=== PATIENT | female | born 1975 | race Caucasian/White ===

== ENCOUNTER 2018-02-26 17:02 | Emergency (ER) | payer OTHER ==
[~2018-02-26] VITALS: Ht 152.4 cm; Wt 63.5 kg
[2018-02-26 17:16] VITALS: BP_SYST 125
[2018-02-26] MEDS ORDERED: KETOROLAC TROMETHAMINE 60 MG/2 ML VIAL IM ONE (18:15)
[2018-02-26 18:56] VITALS: BP_SYST 122
== END 2018-02-26 18:56 | disposition home or self-care (01) ==
LOC: SED 17:02
DX: G56.03 Carpal tunnel syndrome, bilateral upper limbs (principal); R03.0 Elevated blood-pressure reading, without diagnosis of hypertension
CPT/HCPCS: 29125; 96372; 99283; J1885

== ENCOUNTER 2018-10-15 10:35 | Emergency (ER) | payer OTHER ==
[~2018-10-15] VITALS: Ht 152.4 cm; Wt 61.2 kg
[2018-10-15 10:39] VITALS: BP_SYST 167
[2018-10-15 11:13] VITALS: BP_SYST 145
== END 2018-10-15 11:13 | disposition home or self-care (01) ==
LOC: SED 10:35
DX: J02.0 Streptococcal pharyngitis (principal); R03.0 Elevated blood-pressure reading, without diagnosis of hypertension; Z88.5 Allergy status to narcotic agent
CPT/HCPCS: 36415; 86403; 99283

== ENCOUNTER 2019-03-12 11:57 | Emergency (ER) | payer OTHER ==
[~2019-03-12] VITALS: Ht 152.4 cm; Wt 63.5 kg
[2019-03-12 12:02] VITALS: BP_SYST 162
--- NOTE | 2019-03-12 12:06 | NUR ---
Patient to ER bed 7 to gown for evaluation. Side rails up. Report given to Tejal SELF.
--- NOTE | 2019-03-12 12:08 | NUR ---
Pt arrived to ED with complaints of left leg pain, pt stated that it started approx. 11pm the previous night. There is pain and redness to area.
--- NOTE | 2019-03-12 12:10 | NUR ---
ER at bedside examining patient.
[2019-03-12] MEDS ORDERED: DIPH-TET-PERTUS Vaccine 0.5 ML VIAL (ADACEL) I.M. ONE (12:15)
[2019-03-12 12:40] VITALS: BP_SYST 162
--- NOTE | 2019-03-12 12:40 | NUR ---
Amita champion in ED - 03/12/19 at 1241 by [email or web address] LORIE Jerry at bedside examining patient.
--- NOTE | 2019-03-12 12:40 | NUR ---
Patient given written and verbal discharge instructions and verbalizes understanding. ER MD discussed with patient the results and treatment provided. Patient in stable condition. ID arm band removed. Rx of Clindamycin given. Patient educated on pain management and to follow up with PMD. Pain Scale 0/10. Opportunity for questions provided and answered. Medication side effect fact sheet provided.
== END 2019-03-12 12:40 | disposition home or self-care (01) ==
LOC: SED 11:57
DX: S70.362A Insect bite (nonvenomous), left thigh, initial encounter (principal); L03.116 Cellulitis of left lower limb; I10 Essential (primary) hypertension; Z88.5 Allergy status to narcotic agent; W57.XXXA Bitten or stung by nonvenomous insect and other nonvenomous arthropods, initial encounter; Y93.89 Activity, other specified; Y92.89 Other specified places as the place of occurrence of the external cause; Y99.8 Other external cause status
CPT/HCPCS: 90715; 99283

== ENCOUNTER 2019-04-25 20:03 | Emergency (ER) | payer OTHER ==
[~2019-04-25] VITALS: Ht 157.5 cm; Wt 61.2 kg
[2019-04-25 20:09] VITALS: BP_SYST 160
--- NOTE | 2019-04-25 20:12 | NUR ---
TPatient triaged and placed in waiting room. VSS and patient appears in no acute distress at this time. Accompanied by friend, awaiting available bed, and MD notified of need for MSE.
--- NOTE | 2019-04-25 20:20 | NUR ---
Patient to ER bed 2 to gown for evaluation. Side rails up. Report given to Vick.
--- NOTE | 2019-04-25 20:30 | NUR ---
ER Dr. Young at bedside examining patient.
--- NOTE | 2019-04-25 20:35 | NUR ---
Pt C/O difuse abdominal pain radiation to the left lower back x 2 days. Pt states "it feels like kidney stones". Pt denies any N/V/D, fever, painful urination or any other symptoms at this time. Will continue to monitor.
[2019-04-25 20:41] LABS: BILIRUBIN,URINE NEGATIVE (NEGATIVE); BLOOD, URINE 3+ (NEGATIVE); CLARITY/URINE SL HAZY (CLEAR); COLOR,URINE YELLOW (YELLOW); GLUCOSE,URINE NEGATIVE (NEGATIVE); KETONES,URINE TRACE (NEGATIVE); LEUKOCYTE ESTERASE ,URINE NEGATIVE (NEGATIVE); NITRITE, URINE NEGATIVE (NEGATIVE); PH,URINE 5.5 (5.0-8.0); PROTEIN URINE 1+ (NEGATIVE); UROBILINOGEN,URINE 0.2 (0.2-1.0)
[2019-04-25 20:47] LABS: BACTERIA,URINE FEW /HPF (None Seen); MUCUS,URINE 1+ /LPF (None Seen); RBC,URINE 20-50 /HPF (0-3); WBC,URINE 0-3 /HPF (0-3)
[2019-04-25] MEDS ORDERED: NACL 0.9% 1,000 ML IV ONE (20:55)
[2019-04-25] MEDS ORDERED: cefTRIAXone 1 GM IVPB PREMIX 50 ML IV ONE (21:00)
[2019-04-25] MEDS ORDERED: KETOROLAC TROMETHAMINE 30 MG VIAL IVP ONE (21:00)
--- NOTE | 2019-04-25 21:00 | NUR ---
# 20 gauge angiocath placed to RT AC. Use of asceptic technique. Opsite placed over site. Blood return noted. Blood for lab drawn from site. Flushed with 10 cc of normal saline. No evidence of infiltration noted. Patient tolerated well.
[2019-04-25 21:25] LABS: BASOPHILS % (AUTO) 0.5 % (0.0-2.0); EOSINOPHILS # (AUTO) 0.1 K/uL (0.0-0.4); EOSINOPHILS % (AUTO) 1.9 % (0.0-4.0); HEMATOCRIT 30.3 % (36-48); HEMOGLOBIN 9.2 g/dL (12.0-16.0); LYMPHOCYTES # (AUTO) 0.8 K/uL (1.0-5.5); LYMPHOCYTES % (AUTO) 10.6 % (20.5-51.5); MEAN CORPUSCULAR HEMOGLOBIN 20 pg (27-31); MEAN CORPUSCULAR HGB CONC 31 % (32-36); MEAN CORPUSCULAR VOLUME 66 fL (79.0-98.0); MONOCYTES # (AUTO) 0.6 K/uL (0.0-1.0); MONOCYTES % (AUTO) 8.2 % (1.7-9.3); NEUTROPHILS # (AUTO) 5.7 K/uL (1.8-7.7); NEUTROPHILS % (AUTO) 78.8 % (40.0-70.0); PLATELET COUNT (AUTO) 417 K/uL (130-430); RED BLOOD CELL COUNT(AUTO) 4.56 MIL/uL (4.2-6.2); RED CELL DISTRIBUTION WIDTH 20.8 % (9.0-15.0); WHITE BLOOD COUNT (AUTO) 7.2 K/uL (4.8-10.8)
[2019-04-25 21:39] LABS: CALCIUM 8.6 mg/dL (8.4-11.0); CREATININE 0.8 mg/dL (0.55-1.30)
[2019-04-25 21:44] LABS: ALBUMIN 2.8 g/dL (3.4-4.8); TOTAL BILIRUBIN 0.2 mg/dL (0.0-1.0)
--- NOTE | 2019-04-25 22:03 | NUR ---
Radiology at bedside
[2019-04-25] MEDS ORDERED: ENALAPRILAT DIHYDRATE 1.25 MG/ML VIAL IVP ONE (22:15)
--- NOTE | 2019-04-25 22:20 | NUR ---
Dr Young at bedside discussing diagnosis and discharge education
[2019-04-25 22:30] VITALS: BP_SYST 150
--- NOTE | 2019-04-25 22:30 | NUR ---
Patient given written and verbal discharge instructions and verbalizes understanding. ER MD discussed with patient the results and treatment provided. Patient in stable condition. ID arm band removed. IV catheter removed intact and dressing applied, no active bleeding. Rx of Cipro and Pyridium given. Patient educated on pain management and to follow up with PMD. Pain Scale 0. Opportunity for questions provided and answered. Medication side effect fact sheet provided.
== END 2019-04-25 22:30 | disposition home or self-care (01) ==
LOC: SED 20:03
DX: N30.90 Cystitis, unspecified without hematuria (principal); I10 Essential (primary) hypertension; F17.200 Nicotine dependence, unspecified, uncomplicated; Z71.6 Tobacco abuse counseling; Z87.442 Personal history of urinary calculi; Z88.5 Allergy status to narcotic agent
CPT/HCPCS: 36415; 80053; 81000; 81025; 83605; 85025; 87040; 96365; 96375; 99283; J0696; J1885

== ENCOUNTER 2019-04-26 15:17 | Emergency (ER) | payer OTHER ==
[~2019-04-26] VITALS: Ht 152.4 cm; Wt 63.5 kg
[2019-04-26 15:24] VITALS: BP_SYST 145
[2019-04-26] MEDS ORDERED: KETOROLAC TROMETHAMINE 30 MG VIAL IVP ONE (15:45)
[2019-04-26] MEDS ORDERED: ONDANSETRON HCL 4 MG/2 ML VIAL IVP ONE ×2 (15:45→17:15)
[2019-04-26 15:57] LABS: HEMATOCRIT 33.3 % (36-48); MONOCYTES # (AUTO) 0.5 K/uL (0.0-1.0); RED BLOOD CELL COUNT(AUTO) 5.06 MIL/uL (4.2-6.2)
[2019-04-26 16:02] LABS: BASOPHILS % (AUTO) 0.3 % (0.0-2.0); EOSINOPHILS # (AUTO) 0.1 K/uL (0.0-0.4); EOSINOPHILS % (AUTO) 0.7 % (0.0-4.0); LYMPHOCYTES # (AUTO) 1.2 K/uL (1.0-5.5); LYMPHOCYTES % (AUTO) 10.9 % (20.5-51.5); MEAN CORPUSCULAR HEMOGLOBIN 20 pg (27-31); MEAN CORPUSCULAR HGB CONC 30 % (32-36); MEAN CORPUSCULAR VOLUME 66 fL (79.0-98.0); MONOCYTES % (AUTO) 4.4 % (1.7-9.3); NEUTROPHILS # (AUTO) 9.5 K/uL (1.8-7.7); NEUTROPHILS % (AUTO) 83.7 % (40.0-70.0); PLATELET COUNT (AUTO) 441 K/uL (130-430); RED CELL DISTRIBUTION WIDTH 21.1 % (9.0-15.0)
[2019-04-26 16:03] LABS: WHITE BLOOD COUNT (AUTO) 11.3 K/uL (4.8-10.8)
[2019-04-26 16:09] LABS: CREATININE 0.8 mg/dL (0.55-1.30); POTASSIUM 3.6 mmol/L (3.5-5.1)
[2019-04-26 16:17] LABS: ALBUMIN 2.9 g/dL (3.4-4.8); TOTAL BILIRUBIN 0.1 mg/dL (0.0-1.0)
[2019-04-26 16:26] LABS: BILIRUBIN,URINE NEGATIVE (NEGATIVE); BLOOD, URINE 1+ (NEGATIVE); COLOR,URINE ORANGE (YELLOW); KETONES,URINE NEGATIVE (NEGATIVE); LEUKOCYTE ESTERASE ,URINE NEGATIVE (NEGATIVE); PH,URINE 5.5 (5.0-8.0); PROTEIN URINE 1+ (NEGATIVE)
[2019-04-26 16:28] LABS: HCG,QUAL RESULT NEGATIVE (NEGATIVE)
[2019-04-26 16:36] LABS: CLARITY/URINE HAZY (CLEAR); GLUCOSE,URINE NEGATIVE (NEGATIVE); NITRITE, URINE NEGATIVE (NEGATIVE)
[2019-04-26 16:37] LABS: BACTERIA,URINE FEW /HPF (None Seen); MUCUS,URINE None Seen /LPF (None Seen); WBC,URINE 0-3 /HPF (0-3)
[2019-04-26] MEDS ORDERED: MORPHINE 4 MG/ML INJ. SYRINGE IVP ONE (17:15)
[2019-04-26 18:57] VITALS: BP_SYST 145
== END 2019-04-26 18:57 | disposition home or self-care (01) ==
LOC: SED 15:17
DX: R07.89 Other chest pain (principal); R10.11 Right upper quadrant pain; R10.12 Left upper quadrant pain; I11.0 Hypertensive heart disease with heart failure; I50.9 Heart failure, unspecified
CPT/HCPCS: 36415; 71045; 74176; 76700; 80053; 81000; 81025; 83690; 83880; 84484; 84703; 85025; 96374; 96375; 96376; 99284; J1885; J2270; J2405

== ENCOUNTER 2020-02-22 13:46 | Emergency (ER) | payer OTHER ==
[~2020-02-22] VITALS: Ht 152.4 cm; Wt 63.5 kg
[2020-02-22 13:59] VITALS: BP_SYST 160
[2020-02-22] MEDS ORDERED: IBUPROFEN 600 MG TABLET PO ONE (15:00)
[2020-02-22 15:09] VITALS: BP_SYST 160
== END 2020-02-22 15:11 | disposition home or self-care (01) ==
LOC: SED 13:46
DX: H60.91 Unspecified otitis externa, right ear (principal); I11.0 Hypertensive heart disease with heart failure; I50.9 Heart failure, unspecified; Z88.5 Allergy status to narcotic agent; Z87.442 Personal history of urinary calculi
CPT/HCPCS: 99283; J7030

== ENCOUNTER 2020-02-25 19:37 | Emergency (ER) | payer OTHER ==
[~2020-02-25] VITALS: Ht 152.4 cm; Wt 63.5 kg
[2020-02-25 20:10] VITALS: BP_SYST 179
[2020-02-25 21:18] VITALS: BP_SYST 172
== END 2020-02-25 21:18 | disposition home or self-care (01) ==
LOC: SED 19:37
DX: H66.92 Otitis media, unspecified, left ear (principal); M26.601 Right temporomandibular joint disorder, unspecified; I11.0 Hypertensive heart disease with heart failure; I50.9 Heart failure, unspecified; Z88.5 Allergy status to narcotic agent; Z87.442 Personal history of urinary calculi
CPT/HCPCS: 99283

== ENCOUNTER 2020-03-07 17:18 | Emergency (ER) | payer OTHER ==
[~2020-03-07] VITALS: Ht 152.4 cm; Wt 59.0 kg
[2020-03-07 17:24] VITALS: BP_SYST 165
--- NOTE | 2020-03-07 17:30 | NUR ---
Patient to ER bed 6 to gown for evaluation. Side rails up.
--- NOTE | 2020-03-07 17:31 | NUR ---
pt arrives from home w/ c/o right ear x 3 weeks. pt has been seen three times for the same issue. States that she has had a reaction to Naprosyn. No other c/o at the moment
--- NOTE | 2020-03-07 17:35 | NUR ---
ER at bedside examining patient.
[2020-03-07] MEDS ORDERED: KETOROLAC TROMETHAMINE 60 MG/2 ML VIAL IM ONE (17:45)
--- NOTE | 2020-03-07 17:46 | NUR ---
medicated the pt w/ Toradol IM per MD order. Will reassess
[2020-03-07 17:55] VITALS: BP_SYST 165
--- NOTE | 2020-03-07 17:55 | NUR ---
Patient given written and verbal discharge instructions and verbalizes understanding. ER MD discussed with patient the results and treatment provided. Patient in stable condition. ID arm band removed. Rx of Ultram given. Patient educated on pain management and to follow up with PMD. Pain Scale 0/10. Opportunity for questions provided and answered. Medication side effect fact sheet provided.
== END 2020-03-07 17:55 | disposition home or self-care (01) ==
LOC: SED 17:18
DX: H92.01 Otalgia, right ear (principal); I11.0 Hypertensive heart disease with heart failure; I50.9 Heart failure, unspecified; Z87.442 Personal history of urinary calculi
CPT/HCPCS: 96372; 99283; J1885

== ENCOUNTER 2020-10-06 04:27 | Emergency (ER) | payer OTHER ==
[~2020-10-06] VITALS: Ht 152.4 cm; Wt 68.0 kg
[2020-10-06 05:11] VITALS: BP_SYST 185
--- NOTE | 2020-10-06 05:11 | NUR ---
Patient triaged and placed in waiting room. VSS and patient appears in no acute distress at this time. Accompanied by SELF, awaiting available bed, and MD notified of need for MSE.
--- NOTE | 2020-10-06 06:06 | NUR ---
Patient to [facility] [place] for evaluation. Side rails up.
--- NOTE | 2020-10-06 06:08 | NUR ---
PT A&O X4 FROM HOME C/O OF LEFT ELBOW PAIN, SWELLING, REDNESS, WARMTH TO TOUCH THAT STARTED LAST NIGHT. PT STATES SHE HAS HAD ELBOW PAIN FOR PAST MONTH BUT LAST NIGHT IT STARTED SWELLING AND GETTING MORE PAINFUL. PT DENIES BUG BITE, IV DRUG USE.
--- NOTE | 2020-10-06 06:28 | NUR ---
ER Dr. Fierro at bedside examining patient.
[2020-10-06] MEDS ORDERED: IBUPROFEN 800 MG TABLET PO ONE (06:45)
[2020-10-06] MEDS ORDERED: ACETAMINOPHEN 500 MG TABLET PO ONE (06:45)
[2020-10-06] MEDS ORDERED: ACETAMINOPHEN 500 MG TABLET ONE (07:09)
--- NOTE | 2020-10-06 07:13 | NUR ---
MEDICATED PER MD ORDERS. PT TOLERATED WELL.
--- NOTE | 2020-10-06 07:15 | NUR ---
Report from Malika SELF
--- NOTE | 2020-10-06 08:09 | NUR ---
Patient given written and verbal discharge instructions and verbalizes understanding. ER MD discussed with patient the results and treatment provided. Patient in stable condition. ID arm band removed. Rx of FLEXERIL & NAPROSYN given. Patient educated on pain management and to follow up with PMD. Pain Scale 6/10 . PO PAIN MEDICATION GIVEN IN ER. Opportunity for questions provided and answered. Medication side effect fact sheet provided.
[2020-10-06 08:11] VITALS: BP_SYST 141
== END 2020-10-06 08:11 | disposition home or self-care (01) ==
LOC: SED 04:27
DX: M25.522 Pain in left elbow (principal); I11.0 Hypertensive heart disease with heart failure; I50.9 Heart failure, unspecified; Z88.6 Allergy status to analgesic agent
CPT/HCPCS: 99283

== ENCOUNTER 2020-10-31 17:57 | Emergency (ER) | payer OTHER ==
[~2020-10-31] VITALS: Ht 152.4 cm; Wt 68.0 kg
[2020-10-31 18:00] VITALS: BP_SYST 160
--- NOTE | 2020-10-31 18:00 | NUR ---
BROUGHT IN TO TRIAGE TENT AND TRIAGED. AWAITING AVAILABLE ER BED.
--- NOTE | 2020-10-31 19:50 | NUR ---
Pt called x 3, no answer. Patient left without being seen. No further treatment done. ER MD aware
== END 2020-10-31 19:50 | disposition left against medical advice (07) ==
LOC: SED 17:57
DX: M79.662 Pain in left lower leg (principal); Z53.21 Procedure and treatment not carried out due to patient leaving prior to being seen by health care provider

== ENCOUNTER 2021-10-22 15:05 | Emergency (ER) | payer OTHER, SELFPAY ==
[~2021-10-22] VITALS: Ht 157.5 cm; Wt 72.6 kg
[~2021-10-22 15:05] MED LIST: ASA81 PO; LIP20 PO; LISI10TA29 PO; METO-542 PO
[2021-10-22 15:20] VITALS: BP_SYST 165
--- NOTE | 2021-10-22 15:20 | NUR ---
Patient to ER bed tent to gown for evaluation. Side rails up.
--- NOTE | 2021-10-22 15:25 | NUR ---
Pt brought by self, A&Ox4, pt presents to ER with L lower abdominal pain, N/V/D sx 1 week, skin pink and warm, cap refill <3, VSS
[2021-10-22] MEDS ORDERED: ONDANSETRON 4 MG ODT TAB PO ONE ×2 (15:30)
[2021-10-22] MEDS ORDERED: IBUPROFEN 800 MG TABLET PO ONE (15:30)
--- NOTE | 2021-10-22 15:30 | NUR ---
Dr Palacios evaluating patient at bedside
[2021-10-22 16:05] LABS: BASOPHILS % (AUTO) 0.4 % (0.0-2.0); EOSINOPHILS # (AUTO) 0.1 K/uL (0.0-0.4); EOSINOPHILS % (AUTO) 2.4 % (0.0-4.0); HEMATOCRIT 41.2 % (36-48); HEMOGLOBIN 13.6 g/dL (12.0-16.0); LYMPHOCYTES # (AUTO) 1.6 K/uL (1.0-5.5); MEAN CORPUSCULAR HEMOGLOBIN 29 pg (27-31); MEAN CORPUSCULAR HGB CONC 33 % (32-36); MEAN CORPUSCULAR VOLUME 89 fL (79.0-98.0); MONOCYTES # (AUTO) 0.5 K/uL (0.0-1.0); MONOCYTES % (AUTO) 9.1 % (1.7-9.3); NEUTROPHILS # (AUTO) 3.3 K/uL (1.8-7.7); NEUTROPHILS % (AUTO) 59.1 % (40.0-70.0); PLATELET COUNT (AUTO) 341 K/uL (130-430); RED BLOOD CELL COUNT(AUTO) 4.64 MIL/uL (4.2-6.2); RED CELL DISTRIBUTION WIDTH 14.3 % (9.0-15.0); WHITE BLOOD COUNT (AUTO) 5.6 K/uL (4.8-10.8)
[2021-10-22 16:08] LABS: CALCIUM 8.4 mg/dL (8.4-11.0); CREATININE 0.8 mg/dL (0.55-1.30); POTASSIUM 5.1 mmol/L (3.5-5.1)
[2021-10-22 16:14] LABS: BILIRUBIN,URINE NEGATIVE (NEGATIVE); BLOOD, URINE TRACE (NEGATIVE); CLARITY/URINE CLEAR (CLEAR); COLOR,URINE YELLOW (YELLOW); GLUCOSE,URINE NEGATIVE (NEGATIVE); KETONES,URINE NEGATIVE (NEGATIVE); NITRITE, URINE NEGATIVE (NEGATIVE); PH,URINE 5.5 (5.0-8.0); PROTEIN URINE NEGATIVE (NEGATIVE); UROBILINOGEN,URINE 0.2 (0.2-1.0)
[2021-10-22 16:15] LABS: ALBUMIN 3.7 g/dL (3.4-4.8); TOTAL BILIRUBIN 0.4 mg/dL (0.0-1.0)
[2021-10-22 16:16] LABS: BACTERIA,URINE FEW /HPF (None Seen); LEUKOCYTE ESTERASE ,URINE TRACE (NEGATIVE); MUCUS,URINE None Seen /LPF (None Seen); RBC,URINE 0-3 /HPF (0-3)
[2021-10-22 16:30] LABS: C-REACTIVE PROTEIN QUANT 0.4 mg/dL (0-0.5)
--- NOTE | 2021-10-22 16:50 | NUR ---
Patient moved into room 4. Awaiting diagnostic results and further dispo. Will continue to monitor.
--- NOTE | 2021-10-22 16:52 | NUR ---
Dr Palacios to bedside to update patient
[2021-10-22] MEDS ORDERED: IBUP-1969 PO (16:55)
[2021-10-22] MEDS ORDERED: ONDA-8 TL (16:55)
--- NOTE | 2021-10-22 17:00 | NUR ---
Patient given written and verbal discharge instructions and verbalizes understanding. ER MD discussed with patient the results and treatment provided. Patient in stable condition. ID arm band removed. Rx of Motrin and Ondansetron given. Patient educated on pain management and to follow up with PMD. Opportunity for questions provided and answered. Medication side effect fact sheet provided.
[2021-10-22 17:01] VITALS: BP_SYST 165
== END 2021-10-22 17:01 | disposition home or self-care (01) ==
LOC: SED 15:05
DX: R10.9 Unspecified abdominal pain (principal); I10 Essential (primary) hypertension; Z88.5 Allergy status to narcotic agent; Z79.899 Other long term (current) drug therapy; Z20.822 Contact with and (suspected) exposure to COVID-19
CPT/HCPCS: 36415; 74018; 80053; 81000; 82150; 83605; 83690; 84703; 85025; 86140; 87426; 99284; Q0162

== ENCOUNTER 2021-10-30 17:17 | Emergency (ER) | payer OTHER, SELFPAY ==
[~2021-10-30] VITALS: Ht 152.4 cm; Wt 72.6 kg
[~2021-10-30 17:17] MED LIST changes: +IBUP-1969 PO; +ONDA-8 TL
[2021-10-30 17:30] VITALS: BP_SYST 175
--- NOTE | 2021-10-30 17:30 | NUR ---
Pt. dropped off by father who is Covid +, pt. here with c/o chills and 10/10 pain to left side and left flank, denies N/V/D
--- NOTE | 2021-10-30 18:09 | NUR ---
LORIE Kathleen in tent examining patient.
--- NOTE | 2021-10-30 18:42 | NUR ---
pt. returned from CT
--- NOTE | 2021-10-30 18:50 | NUR ---
pt. resting on gurney, BP improved, urine and covid swab sent
--- NOTE | 2021-10-30 19:05 | NUR ---
Pt BIB family to ED with with history of kidney stones, presenting to the ED secondary to constant left flank pain radiating diffusely since this morning. Patient describes pain as sharp in nature with no alleviating or provoking factors. Patient was recently exposed to her father who is Covid positive
[2021-10-30 19:17] LABS: BASOPHILS % (AUTO) 0.4 % (0.0-2.0); EOSINOPHILS % (AUTO) 0.3 % (0.0-4.0); HEMATOCRIT 43.7 % (36-48); HEMOGLOBIN 14.9 g/dL (12.0-16.0); LYMPHOCYTES # (AUTO) 0.9 K/uL (1.0-5.5); MEAN CORPUSCULAR HEMOGLOBIN 30 pg (27-31); MEAN CORPUSCULAR HGB CONC 34 % (32-36); MEAN CORPUSCULAR VOLUME 87 fL (79.0-98.0); MONOCYTES # (AUTO) 0.6 K/uL (0.0-1.0); MONOCYTES % (AUTO) 5.4 % (1.7-9.3); NEUTROPHILS # (AUTO) 8.8 K/uL (1.8-7.7); NEUTROPHILS % (AUTO) 84.9 % (40.0-70.0); PLATELET COUNT (AUTO) 349 K/uL (130-430); RED CELL DISTRIBUTION WIDTH 13.8 % (9.0-15.0); WHITE BLOOD COUNT (AUTO) 10.3 K/uL (4.8-10.8)
[2021-10-30 19:18] LABS: BILIRUBIN,URINE NEGATIVE (NEGATIVE); BLOOD, URINE 2+ (NEGATIVE); COLOR,URINE YELLOW (YELLOW); GLUCOSE,URINE NEGATIVE (NEGATIVE); KETONES,URINE NEGATIVE (NEGATIVE); LEUKOCYTE ESTERASE ,URINE NEGATIVE (NEGATIVE); NITRITE, URINE POSITIVE (NEGATIVE); PROTEIN URINE 3+ (NEGATIVE); UROBILINOGEN,URINE 0.2 (0.2-1.0)
[2021-10-30 19:21] LABS: CALCIUM 9.2 mg/dL (8.4-11.0); CREATININE 1.1 mg/dL (0.55-1.30)
[2021-10-30 19:29] LABS: CLARITY/URINE HAZY (CLEAR)
[2021-10-30 19:37] LABS: ALBUMIN 3.6 g/dL (3.4-4.8); TOTAL BILIRUBIN 0.5 mg/dL (0.0-1.0)
[2021-10-30 19:56] LABS: BACTERIA,URINE MANY /HPF (None Seen); WBC,URINE 80-100 /HPF (0-3)
[2021-10-30] MEDS ORDERED: HYDROcodone/ACETAMIN 5-325 MG TAB (NORCO/ VICODIN) PO ONE (20:00)
--- NOTE | 2021-10-30 20:11 | NUR ---
VSS no s/s of acute distress
[2021-10-30] MEDS ORDERED: cefTRIAXone 1 GM in D5W 50 ML IV ONE (20:15)
[2021-10-30] MEDS ORDERED: cefTRIAXone 1 GM VIAL ONE (20:28)
[2021-10-30] MEDS ORDERED: NACL 0.9% 1,000 ML IV ONE (21:15)
--- NOTE | 2021-10-30 21:27 | NUR ---
Pain med + IVF therapy well tolerated
--- NOTE | 2021-10-30 22:26 | NUR ---
Pt repositioned to outside tent, well tolerated
[2021-10-30] MEDS ORDERED: CEPH-548 PO (23:08)
[2021-10-30] MEDS ORDERED: HYDR-3917 PO (23:08)
[2021-10-30 23:33] VITALS: BP_SYST 132
--- NOTE | 2021-10-30 23:34 | NUR ---
Patient given written and verbal discharge instructions and verbalizes understanding. ER MD discussed with patient the results and treatment provided. Patient in stable condition. ID arm band removed. Rx of keflex and norco given. Patient educated on pain management and to follow up with PMD. Pain Scale 0. Opportunity for questions provided and answered. Medication side effect fact sheet provided.
== END 2021-10-30 23:33 | disposition home or self-care (01) ==
LOC: SED 17:17
DX: N39.0 Urinary tract infection, site not specified (principal); R10.9 Unspecified abdominal pain; F12.90 Cannabis use, unspecified, uncomplicated; I10 Essential (primary) hypertension; Z88.5 Allergy status to narcotic agent; Z88.8 Allergy status to other drugs, medicaments and biological substances; Z79.82 Long term (current) use of aspirin; Z79.899 Other long term (current) drug therapy; Z20.822 Contact with and (suspected) exposure to COVID-19
CPT/HCPCS: 36415; 74176; 76376; 80053; 81000; 83605; 83690; 84702; 85025; 87086; 87426; 99284; J0696

== ENCOUNTER 2022-09-15 06:57 | Emergency (ER) | payer OTHER ==
[~2022-09-15] VITALS: Ht 152.4 cm; Wt 74.8 kg
[~2022-09-15 06:57] MED LIST changes: +CEPH-548 PO; +HYDR-3917 PO
[2022-09-15 07:05] VITALS: BP_SYST 142
--- NOTE | 2022-09-15 07:05 | NUR ---
BROUGHT BACK TO BED #8 AND TRIAGED. REPORT GIVEN TO JAYME
--- NOTE | 2022-09-15 07:20 | NUR ---
DR PEREZ AT BEDSIDE FOR EVALUATION
[2022-09-15] MEDS ORDERED: CHOL200075 PO (07:28)
[2022-09-15] MEDS ORDERED: IRON PO (07:28)
[2022-09-15 07:41] LABS: BILIRUBIN,URINE NEGATIVE (NEGATIVE); BLOOD, URINE 1+ (NEGATIVE); CLARITY/URINE CLEAR (CLEAR); COLOR,URINE YELLOW (YELLOW); GLUCOSE,URINE NEGATIVE (NEGATIVE); KETONES,URINE NEGATIVE (NEGATIVE); LEUKOCYTE ESTERASE ,URINE NEGATIVE (NEGATIVE); NITRITE, URINE POSITIVE (NEGATIVE); PH,URINE 5.5 (5.0-8.0); PROTEIN URINE NEGATIVE (NEGATIVE); UROBILINOGEN,URINE 0.2 (0.2-1.0)
[2022-09-15] MEDS ORDERED: cefTRIAXone 1 GM IVPB PREMIX 50 ML IV ONE (07:45)
[2022-09-15 07:53] LABS: BACTERIA,URINE MODERATE /HPF (None Seen); WBC,URINE 0-3 /HPF (0-3)
[2022-09-15 07:57] LABS: BASOPHILS % (AUTO) 0.6 % (0.0-2.0); EOSINOPHILS # (AUTO) 0.2 K/uL (0.0-0.4); EOSINOPHILS % (AUTO) 2.5 % (0.0-4.0); HEMOGLOBIN 13.5 g/dL (12.0-16.0); LYMPHOCYTES # (AUTO) 1.6 K/uL (1.0-5.5); LYMPHOCYTES % (AUTO) 23.2 % (20.5-51.5); MEAN CORPUSCULAR HEMOGLOBIN 31 pg (27-31); MEAN CORPUSCULAR HGB CONC 34 % (32-36); MEAN CORPUSCULAR VOLUME 90 fL (79.0-98.0); MONOCYTES # (AUTO) 0.4 K/uL (0.0-1.0); MONOCYTES % (AUTO) 6.2 % (1.7-9.3); NEUTROPHILS # (AUTO) 4.7 K/uL (1.8-7.7); NEUTROPHILS % (AUTO) 67.5 % (40.0-70.0); PLATELET COUNT (AUTO) 281 K/uL (130-430); RED BLOOD CELL COUNT(AUTO) 4.43 MIL/uL (4.2-6.2); RED CELL DISTRIBUTION WIDTH 13.2 % (9.0-15.0)
[2022-09-15 08:06] LABS: CREATININE 0.79 mg/dL (0.55-1.30)
[2022-09-15 08:11] LABS: ALBUMIN 3.5 g/dL (3.4-4.8); TOTAL BILIRUBIN 0.3 mg/dL (0.0-1.0)
[2022-09-15] MEDS ORDERED: KETOROLAC TROMETHAMINE 30 MG VIAL IVP ONE (08:30)
[2022-09-15] MEDS ORDERED: MORPHINE 4 MG INJ. 4 MG/ML VIAL IVP ONE (09:45)
[2022-09-15] MEDS ORDERED: HYDR-3917 PO (11:42)
[2022-09-15] MEDS ORDERED: CEPH-548 PO (11:45)
[2022-09-15 11:57] VITALS: BP_SYST 125
--- NOTE | 2022-09-15 11:58 | NUR ---
CLEARED FOR DC BY DR. PEREZ. PT VERBALIZED UNDERSTANDING OF DC INSTRUCTIONS. PT'S FRIEND CAME TO PICK HER UP TO TAKE HOME. PT AMBULATED OUT OF ED IN STABLE CONDITION. RX SENT TO PT'S PHARM.
== END 2022-09-15 11:58 | disposition home or self-care (01) ==
LOC: SED 06:57
DX: N20.0 Calculus of kidney (principal); N83.202 Unspecified ovarian cyst, left side; N23 Unspecified renal colic; Z79.899 Other long term (current) drug therapy
CPT/HCPCS: 99284; 74176; 96365; 96375; 80053; 81000; 85025; 36415; 76376; 81025; J1885; J2270

== ENCOUNTER 2023-02-11 19:37 | Emergency (ER) | payer OTHER ==
[~2023-02-11] VITALS: Ht 152.4 cm; Wt 72.6 kg
[~2023-02-11 19:37] MED LIST changes: +CHOL200075 PO; +IRON PO
[2023-02-11 19:41] VITALS: BP_SYST 147
[2023-02-11] MEDS ORDERED: KETOROLAC TROMETHAMINE 30 MG VIAL IVP ONE (20:15)
[2023-02-11 20:30] LABS: BASOPHILS % (AUTO) 0.6 % (0.0-2.0); EOSINOPHILS # (AUTO) 0.2 K/uL (0.0-0.4); EOSINOPHILS % (AUTO) 2.3 % (0.0-4.0); HEMATOCRIT 40.3 % (36-48); HEMOGLOBIN 13.6 g/dL (12.0-16.0); LYMPHOCYTES # (AUTO) 2.1 K/uL (1.0-5.5); LYMPHOCYTES % (AUTO) 30.5 % (20.5-51.5); MEAN CORPUSCULAR HEMOGLOBIN 31 pg (27-31); MEAN CORPUSCULAR HGB CONC 34 % (32-36); MEAN CORPUSCULAR VOLUME 91 fL (79.0-98.0); MONOCYTES # (AUTO) 0.5 K/uL (0.0-1.0); MONOCYTES % (AUTO) 6.8 % (1.7-9.3); NEUTROPHILS # (AUTO) 4.1 K/uL (1.8-7.7); NEUTROPHILS % (AUTO) 59.8 % (40.0-70.0); PLATELET COUNT (AUTO) 286 K/uL (130-430); RED BLOOD CELL COUNT(AUTO) 4.45 MIL/uL (4.2-6.2); RED CELL DISTRIBUTION WIDTH 13.6 % (9.0-15.0); WHITE BLOOD COUNT (AUTO) 6.8 K/uL (4.8-10.8)
[2023-02-11 20:39] LABS: ANION GAP 6 (5-15); CALCIUM 8.4 mg/dL (8.4-11.0); CHLORIDE 103 mmol/L (98-107); GFR AFRICAN AMERICAN 76 mL/min (>90); GLUCOSE 144 mg/dL (70-99); UREA NITROGEN, BLOOD 16 mg/dL (8-21)
[2023-02-11 20:54] LABS: ALANINE AMINOTRANSFERASE 50 U/L (12-78); ALBUMIN 3.3 g/dL (3.4-4.8); ASPARTATE AMINOTRANSFERASE 27 U/L (10-37); TOTAL BILIRUBIN 0.5 mg/dL (0.0-1.0)
[2023-02-11] MEDS ORDERED: IBUP-1971 PO (22:11)
[2023-02-11 22:16] VITALS: BP_SYST 123
== END 2023-02-11 21:12 | disposition home or self-care (01) ==
LOC: SED 19:37
DX: R09.1 Pleurisy (principal); R07.89 Other chest pain; I10 Essential (primary) hypertension; Z88.5 Allergy status to narcotic agent; Z88.8 Allergy status to other drugs, medicaments and biological substances; Z79.899 Other long term (current) drug therapy; Z20.822 Contact with and (suspected) exposure to COVID-19
CPT/HCPCS: 99285; 96374; 71045; 87426; 80053; 83880; 85025; 85379; 84484; 36415; 93005; 87804 ×2; J1885

== ENCOUNTER 2023-07-11 22:32 | Emergency (ER) | payer OTHER ==
[~2023-07-11] VITALS: Ht 152.4 cm; Wt 72.6 kg
[~2023-07-11 22:32] MED LIST changes: +IBUP-1971 PO
[2023-07-11 22:55] VITALS: BP_SYST 147; PULSE 64; RESP 16; TEMP 97.9; O2SAT 97
[2023-07-12 00:25] LABS: BILIRUBIN,URINE NEGATIVE (NEGATIVE); CLARITY/URINE Clear (CLEAR); COLOR,URINE YELLOW (YELLOW); GLUCOSE,URINE NEGATIVE (NEGATIVE); KETONES,URINE NEGATIVE (NEGATIVE); LEUKOCYTE ESTERASE ,URINE NEGATIVE (NEGATIVE); NITRITE, URINE POSITIVE (NEGATIVE); PROTEIN URINE NEGATIVE (NEGATIVE); UROBILINOGEN,URINE 0.2 (0.2-1.0)
[2023-07-12 00:37] LABS: BASOPHILS % (AUTO) 0.7 % (0.0-2.0); EOSINOPHILS # (AUTO) 0.1 K/uL (0.0-0.4); HEMATOCRIT 40.7 % (36-48); HEMOGLOBIN 13.2 g/dL (12.0-16.0); LYMPHOCYTES # (AUTO) 2.1 K/uL (1.0-5.5); LYMPHOCYTES % (AUTO) 31.3 % (20.5-51.5); MEAN CORPUSCULAR HEMOGLOBIN 30 pg (27-31); MEAN CORPUSCULAR HGB CONC 32 % (32-36); MEAN CORPUSCULAR VOLUME 92 fL (79.0-98.0); MONOCYTES # (AUTO) 0.7 K/uL (0.0-1.0); MONOCYTES % (AUTO) 10.5 % (1.7-9.3); NEUTROPHILS # (AUTO) 3.7 K/uL (1.8-7.7); NEUTROPHILS % (AUTO) 55.5 % (40.0-70.0); PLATELET COUNT (AUTO) 368 K/uL (130-430); RED BLOOD CELL COUNT(AUTO) 4.43 MIL/uL (4.2-6.2); RED CELL DISTRIBUTION WIDTH 13.8 % (9.0-15.0); WHITE BLOOD COUNT (AUTO) 6.7 K/uL (4.8-10.8)
[2023-07-12 00:38] LABS: BLOOD, URINE TRACE (NEGATIVE)
[2023-07-12 00:43] LABS: BACTERIA,URINE MANY /HPF (None Seen)
[2023-07-12 00:52] LABS: CREATININE 0.95 mg/dL (0.55-1.30)
[2023-07-12 00:57] LABS: ALBUMIN 3.6 g/dL (3.4-4.8); TOTAL BILIRUBIN 0.3 mg/dL (0.0-1.0); TOTAL PROTEIN, SERUM 7.6 g/dL (6.4-8.3)
[2023-07-12] MEDS ORDERED: HYDROcodone/ACETAMIN 5-325 MG TAB (NORCO/ VICODIN) ONE (02:03)
[2023-07-12 02:23] VITALS: BP_SYST 137; PULSE 55; RESP 18; TEMP 98.1; O2SAT 99
== END 2023-07-12 02:25 | disposition home or self-care (01) ==
LOC: SED 22:32
DX: N39.0 Urinary tract infection, site not specified (principal); R07.89 Other chest pain; R10.9 Unspecified abdominal pain; I10 Essential (primary) hypertension; Z88.5 Allergy status to narcotic agent; Z88.6 Allergy status to analgesic agent; Z79.899 Other long term (current) drug therapy
CPT/HCPCS: 36415; 80053; 81000; 85025; 85379; 87086; 99283

== ENCOUNTER 2023-11-29 08:20 | Emergency (ER) | payer OTHER ==
[~2023-11-29] VITALS: Ht 152.4 cm; Wt 70.3 kg
[2023-11-29 08:20] VITALS: BP_SYST 131; PULSE 69; RESP 18; TEMP 97.8; O2SAT 97
[2023-11-29] MEDS ORDERED: predniSONE 20 MG TABLET PO ONE (09:00)
[2023-11-29] MEDS ORDERED: FAMOTIDINE 20 MG TABLET PO ONE (09:00)
[2023-11-29] MEDS ORDERED: cephALEXin 500 MG CAPSULE PO ONE (09:00)
[2023-11-29] MEDS ORDERED: MUPI1OIN5 TP (09:05)
[2023-11-29] MEDS ORDERED: CEPH-548 PO (09:05)
[2023-11-29] MEDS ORDERED: FAMO40TA71 PO (09:05)
[2023-11-29] MEDS ORDERED: PRED20TA PO (09:05)
[2023-11-29] MEDS ORDERED: DIPH-1081 PO (09:05)
[2023-11-29] MEDS ORDERED: EPIN0.3P3 IM (09:10)
[2023-11-29 09:26] VITALS: BP_SYST 131; PULSE 69; RESP 18; TEMP 97.8; O2SAT 97
== END 2023-11-29 09:25 | disposition home or self-care (01) ==
LOC: SED 08:20
DX: S30.860A Insect bite (nonvenomous) of lower back and pelvis, initial encounter (principal); L03.317 Cellulitis of buttock; R22.0 Localized swelling, mass and lump, head; T78.40XA Allergy, unspecified, initial encounter; I11.0 Hypertensive heart disease with heart failure; I50.9 Heart failure, unspecified; Z88.5 Allergy status to narcotic agent; Z88.6 Allergy status to analgesic agent; Z79.899 Other long term (current) drug therapy; W57.XXXA Bitten or stung by nonvenomous insect and other nonvenomous arthropods, initial encounter; Y93.89 Activity, other specified; Y92.89 Other specified places as the place of occurrence of the external cause; Y99.8 Other external cause status
CPT/HCPCS: 99284; J7512

== ENCOUNTER 2023-12-11 11:55 | Emergency (ER) | payer OTHER ==
[~2023-12-11] VITALS: Ht 152.4 cm; Wt 74.8 kg
[~2023-12-11 11:55] MED LIST changes: +DIPH-1081 PO; +EPIN0.3P3 IM; +FAMO40TA71 PO; +MUPI1OIN5 TP; +PRED20TA PO
[2023-12-11 12:10] VITALS: BP_SYST 122; PULSE 95; RESP 18; TEMP 98.5; O2SAT 96
[2023-12-11 12:46] LABS: COVID19 ANTIGEN SOFIA FIA NEGATIVE (NEGATIVE)
[2023-12-11 12:47] LABS: INFLUENZA TYPE A Negative (NEGATIVE); INFLUENZA TYPE B NEGATIVE (NEGATIVE)
[2023-12-11 13:11] LABS: BASOPHILS % (AUTO) 0.3 % (0.0-2.0); EOSINOPHILS # (AUTO) 0.1 K/uL (0.0-0.4); EOSINOPHILS % (AUTO) 0.8 % (0.0-4.0); HEMATOCRIT 45.3 % (36-48); HEMOGLOBIN 15.3 g/dL (12.0-16.0); LYMPHOCYTES # (AUTO) 1.3 K/uL (1.0-5.5); LYMPHOCYTES % (AUTO) 10.5 % (20.5-51.5); MEAN CORPUSCULAR HEMOGLOBIN 31 pg (27-31); MEAN CORPUSCULAR HGB CONC 34 % (32-36); MEAN CORPUSCULAR VOLUME 91 fL (79.0-98.0); MONOCYTES # (AUTO) 0.9 K/uL (0.0-1.0); MONOCYTES % (AUTO) 7.1 % (1.7-9.3); NEUTROPHILS % (AUTO) 81.3 % (40.0-70.0); PLATELET COUNT (AUTO) 363 K/uL (130-430); RED CELL DISTRIBUTION WIDTH 14.2 % (9.0-15.0); WHITE BLOOD COUNT (AUTO) 12.4 K/uL (4.8-10.8)
[2023-12-11 13:27] LABS: ANION GAP 9 (5-15); CALCIUM 8.9 mg/dL (8.4-11.0); CARBON DIOXIDE 27 mmol/L (23-29); CHLORIDE 103 mmol/L (98-107); CREATININE 0.88 mg/dL (0.55-1.30); GFR AFRICAN AMERICAN 87 mL/min (>90); GLUCOSE 102 mg/dL (74-106); POTASSIUM 4.7 mmol/L (3.5-5.1); SODIUM SERUM 139 mmol/L (136-145); UREA NITROGEN, BLOOD 14 mg/dL (8-21)
[2023-12-11 13:29] LABS: GFR NON AFRICAN-AMERICAN 72 mL/min (>90)
[2023-12-11] MEDS: KETOROLAC TROMETHAMINE 30 MG VIAL IM ONE (13:30)
[2023-12-11] MEDS ORDERED: ALBMDI INH (13:53)
[2023-12-11] MEDS ORDERED: BENZ100C92 PO (13:53)
[2023-12-11] MEDS ORDERED: GUAI-723 PO (13:53)
[2023-12-11 14:14] VITALS: BP_SYST 122; PULSE 95; RESP 18; TEMP 98.5; O2SAT 96
== END 2023-12-11 13:45 | disposition home or self-care (01) ==
LOC: SED 11:55
DX: J06.9 Acute upper respiratory infection, unspecified (principal); R05.9 Cough, unspecified; M79.10 Myalgia, unspecified site; I11.0 Hypertensive heart disease with heart failure; I50.9 Heart failure, unspecified; E78.5 Hyperlipidemia, unspecified; F12.90 Cannabis use, unspecified, uncomplicated; Z88.5 Allergy status to narcotic agent; Z88.6 Allergy status to analgesic agent; Z79.899 Other long term (current) drug therapy; Z20.822 Contact with and (suspected) exposure to COVID-19
CPT/HCPCS: 99285; 71046; 87426; 80048; 83880; 85025; 84484; 36415; 93005; 96372; 87804 ×2; J1885

== ENCOUNTER 2024-08-25 16:51 | Emergency (ER) | payer OTHER ==
[~2024-08-25] VITALS: Ht 152.4 cm; Wt 72.6 kg
[~2024-08-25 16:51] MED LIST changes: +ALBMDI INH; +BENZ100C92 PO; +GUAI-723 PO; +METO-306 PO; -METO-542 PO
[2024-08-25 17:00] VITALS: BP_SYST 136; PULSE 54; RESP 18; TEMP 97.4; O2SAT 94
[2024-08-25] MEDS: KETOROLAC TROMETHAMINE 60 MG/2 ML VIAL IM ONE (18:06)
[2024-08-25 18:10] VITALS: BP_SYST 136; PULSE 54; RESP 18; TEMP 97.4; O2SAT 94
[2024-08-25] MEDS ORDERED: IBUP-1969 PO (18:56)
[2024-08-25] MEDS ORDERED: DICL20GE TP (18:56)
== END 2024-08-25 18:10 | disposition home or self-care (01) ==
LOC: SED 16:51
DX: S46.911A Strain of unspecified muscle, fascia and tendon at shoulder and upper arm level, right arm, initial encounter (principal); I11.0 Hypertensive heart disease with heart failure; I50.9 Heart failure, unspecified; E78.5 Hyperlipidemia, unspecified; Z88.5 Allergy status to narcotic agent; Z88.6 Allergy status to analgesic agent; Z79.52 Long term (current) use of systemic steroids; Z87.442 Personal history of urinary calculi; Z79.899 Other long term (current) drug therapy; X50.0XXA Overexertion from strenuous movement or load, initial encounter; Y93.89 Activity, other specified; Y92.89 Other specified places as the place of occurrence of the external cause; Y99.8 Other external cause status
CPT/HCPCS: 99283; 73030; 96372; 73020; J1885